=== PATIENT | female | born 1970 | race Caucasian/White ===

== ENCOUNTER 2019-10-21 03:54 | Emergency (ER) | payer BC, OTHER ==
[~2019-10-21] VITALS: Ht 165.1 cm; Wt 67.8 kg
[2019-10-21 04:03] VITALS: BP 111/78
[2019-10-21] MEDS ORDERED: KETOROLAC 15 MG/ML VIAL. ONE (04:14)
[2019-10-21] MEDS ORDERED: ONDANSETRON PF 4 MG/2 ML VIAL. ONE (04:14)
[2019-10-21] MEDS ORDERED: FAMOTIDINE 20 MG/2 ML VIAL ONE (04:14)
[2019-10-21] MEDS ORDERED: DEXAMETHASONE SOD PHOS 10 MG/ML VIAL ONE (04:14)
[2019-10-21] MEDS ORDERED: ONDANSETRON PF 4 MG/2 ML VIAL. IVP ONE (04:15)
[2019-10-21] MEDS ORDERED: IV NORMAL SALINE 1,000ML 1,000 ML IV ONE (04:15)
[2019-10-21] MEDS ORDERED: FAMOTIDINE 20 MG/2 ML VIAL IVP ONE (04:15)
[2019-10-21] MEDS ORDERED: KETOROLAC 15 MG/ML VIAL. IVP ONE (04:15)
[2019-10-21] MEDS ORDERED: DEXAMETHASONE SOD PHOS 4 MG/ML VIAL IVP ONE (04:15)
[2019-10-21] MEDS ORDERED: ONDA4TAB12 PO (04:24)
[2019-10-21] MEDS ORDERED: BUTA1TAB23 PO (04:24)
[2019-10-21] MEDS ORDERED: FAMO-63 PO (04:24)
--- NOTE | 2019-10-21 04:24 | PHYS DOC ---
Past History Past Medical History: Asthma, Migraines Additional Past Medical Histor: herniated disc in neck, capsilitis L shoulder Past Surgical History: Cholecystectomy Smoking: Non-smoker Alcohol Use: None Drug Use: None Adult General Chief Complaint Chief Complaint: NAUSEA/VOMITING/DIARRHEA HPI HPI 49-year-old female presents with 3 day history of nausea/vomiting/diarrhea. Reports positive sick contacts in family members with same. Reports generalized malaise. Reports now is having exacerbation of chronic migraine headaches. Denies travel outside the [place]. Reports tried taking Tylenol this morning which she immediately threw up. Denies trauma. Denies dysuria or hematuria. Review of Systems Review of Systems Constitutional: Denies fever or chills; reports generalized malaise Eyes: Denies redness or eye pain HENT: Denies nasal congestion or sore throat Respiratory: Denies cough or shortness of breath Cardiovascular: Denies chest pain or palpitations GI: Denies abdominal pain; reports nausea/vomiting/diarrhea : Denies dysuria or hematuria Musculoskeletal: Denies back pain or joint pain Integument: Denies rash or skin lesions Neurologic: Reports headache; denies focal weakness or sensory changes Complete systems were reviewed and found to be within normal limits, except as documented in this note. Current Medications Current Medications Current Medications Medications (Trade) Dose Ordered Sig/Reji Start Time Stop Time Status Last Admin Dose Admin Dexamethasone Sodium Phosphate (Decadron) 10 mg STK-MED ONCE 10/21/19 04:14 10/21/19 04:14 DC Famotidine (Pepcid Vial) 20 mg 1X ONCE 10/21/19 04:15 10/21/19 04:16 UNV Ketorolac Tromethamine (Toradol 15mg Vial) 15 mg 1X ONCE 10/21/19 04:15 10/21/19 04:16 UNV Ondansetron HCl (Zofran) 4 mg 1X ONCE 10/21/19 04:15 10/21/19 04:16 UNV Sodium Chloride 1,000 ml @ 1,000 mls/hr 1X ONCE 10/21/19 04:15 10/21/19 05:14 UNV Physical Exam Physical Exam Constitutional: Well developed, well nourished, no acute distress, non-toxic appearance HENT: Normocephalic, atraumatic, oropharynx tacky Eyes: PERRL, EOMI, conjunctiva normal, no discharge Neck: Normal range of motion, no tenderness, supple Cardiovascular: Heart rate normal, regular rhythm Lungs & Thorax: Bilateral breath sounds clear to auscultation, no wheezing Abdomen: Soft, no tenderness, no guarding/distention/rebound tenderness Skin: Warm, dry, no erythema, no rash Extremities: No tenderness, ROM intact with exception of left shoulder limited secondary to "frozen shoulder "., no edema Neurologic: Alert and oriented X 3, normal motor function, normal sensory function, no focal deficits noted Psychologic: Affect normal, judgment normal Current Patient Data Vital Signs Vital Signs Date Time Temp Pulse Resp B/P (MAP) Pulse Ox O2 Delivery O2 Flow Rate FiO2 10/21/19 04:03 97.5 109 20 111/78 (89) 95 Room Air EKG EKG [] Radiology/Procedures Radiology/Procedures [] Course & Med Decision Making Course & Med Decision Making Pertinent Lab studies reviewed. (See chart for details) Patient presents with several day history of nausea/vomiting/diarrhea with associated generalized malaise and weakness now with exacerbation of chronic migraine headaches. Patient neurologically intact. No history of trauma. Abdomen non-peritoneal. IV fluid hydration provided. Symptomatic treatment given. Labs obtained and posted to chart. Hypokalemia replaced. Patient with interval improvement of symptoms. Patient stable for discharge with outpatient follow-up with PCP/neurologist. Discussed findings and plan with patient and family, who acknowledge understanding and agreement. Dragon Disclaimer Dragon Disclaimer This electronic medical record was generated, in whole or in part, using a voice recognition dictation system. Departure Departure: Impression: Primary Impression: Nausea vomiting and diarrhea Additional Impressions: Headache Hypokalemia Disposition: 01 HOME, SELF-CARE Condition: STABLE Referrals: ANKUR CONLEY MD (PCP) ROULA ALLRED MD Patient Instructions: Clear Liquid Diet, [id number], Diarrhea, [id number], Diet for Diarrhea, Adult, Headache, FAQs, Hypokalemia, Migraine Headache, [id number], Nausea and Vomiting, [id number] Scripts Famotidine (PEPCID) 20 Mg Tablet 1 TAB PO BID for Gastritis for 5 Days, #10 TAB Prov: DAVIN PLUMMER DO 10/21/19 Ondansetron (ONDANSETRON ODT) 4 Mg Tab.rapdis 1 TAB PO PRN Q6-8HRS PRN for NAUSEA, #16 TAB Prov: DAVIN PLUMMER DO 10/21/19 Butalb/Acetaminophen/Caffeine ([id number] 50-325-40) 1 Each Tablet 1 EACH PO Q6HRS PRN for HEADACHE, #14 TAB Prov: DAVIN PLUMMER DO 10/21/19 Problem Qualifiers Additional Impressions: Headache Headache type: unspecified Headache chronicity pattern: acute headache Intractability: intractable Qualified Codes: R51 - Headache DAVIN PLUMMER DO Oct 21, 2019 04:24
[2019-10-21 05:05] LABS: BASO % 0 % (0-3); EOS % 0 % (0-3); HEMATOCRIT 44.4 % (36.0-47.0); HEMOGLOBIN 14.7 g/dL (12.0-15.5); LYMPH # 0.5 x10^3/uL (1.0-4.8); LYMPH % 11 % (24-48); MEAN CORPUSCULAR HEMOGLOBIN 30 pg (25-35); MEAN CORPUSCULAR HGB CONC 33 g/dL (31-37); MEAN CORPUSCULAR VOLUME 89 fL (79-100); MONO # 0.4 x10^3/uL (0.0-1.1); MONO % 8 % (0-9); NEUT # 4.1 x10^3uL (1.8-7.7); NEUT % 81 % (31-73); PLATELET COUNT 200 x10^3/uL (140-400); RED BLOOD COUNT 4.99 x10^6/uL (3.50-5.40); RED CELL DISTRIBUTION WIDTH 12.8 % (11.5-14.5)
[2019-10-21 05:14] LABS: CALCIUM 8.9 mg/dL (8.5-10.1); CREATININE 0.7 mg/dL (0.6-1.0); GFR 88.9; POTASSIUM 3.2 mmol/L (3.5-5.1)
[2019-10-21 05:16] LABS: ALBUMIN 4.1 g/dL (3.4-5.0); ALBUMIN/GLOBULIN RATIO 1.2 (1.0-1.7); MAGNESIUM 1.8 mg/dL (1.8-2.4); TOTAL BILIRUBIN 0.9 mg/dL (0.2-1.0); TOTAL PROTEIN 7.4 g/dL (6.4-8.2)
[2019-10-21] MEDS ORDERED: POTASSIUM CHLORIDE 20 MEQ TABLET.ER. PO ONE ×2 (05:28→05:30)
== END 2019-10-21 05:35 | disposition home or self-care (01) ==
LOC: ER 03:54
DX: R11.2 Nausea with vomiting, unspecified (principal); R19.7 Diarrhea, unspecified; E87.6 Hypokalemia; G43.909 Migraine, unspecified, not intractable, without status migrainosus; J45.909 Unspecified asthma, uncomplicated
CPT/HCPCS: 36415; 80053; 83690; 83735; 85025; 96361; 96374; 96375; 99284; J1100; J1885; J2405; J3490; J7030